=== PATIENT | male | born 1960 | race Caucasian/White ===

== ENCOUNTER 2022-09-04 08:25 | Emergency (ER) | payer BC, SELFPAY ==
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
[2022-09-04 08:34] VITALS: BP 143/67; PULSE 63; RESP 16; TEMP 35.6; O2SAT 99
--- NOTE | 2022-09-04 09:07 | ED.EYEPROB ---
HPI - Eye Problem General Chief complaint: Eye Problems Stated complaint: right eye redness Source: patient and family Mode of arrival: ambulatory Limitations: no limitations History of Present Illness HPI Narrative: 62-year-old male presents [facility] complains of right eye redness, purulent drainage and matting since yesterday. Patient denies injury to his eye. Patient does wear glasses. Patient denies cough, congestion, runny nose, nausea, vomiting or diarrhea. Patient reports that he has had bacterial pinkeye in the past. MD chief complaint: eye redness Onset (ago): day(s) (1) Location: right eye Mechanism: none Associated symptoms: none Treatments Prior to Arrival: none Related Data Home Medications Medication Instructions Recorded Confirmed atorvastatin 40 mg tablet 40 mg PO DAILY 09/04/22 09/04/22 metformin 500 mg tablet,extended 500 mg PO DAILY 09/04/22 09/04/22 release 24 hr metoprolol succinate 25 mg 12.5 mg PO DAILY 09/04/22 09/04/22 tablet,extended release 24 hr Allergies Allergy/AdvReac Type Severity Reaction Status Date / Time No Known Allergies Allergy Verified 09/04/22 08:49 Review of Systems Constitutional: Constitutional: Denies chills, Denies fatigue, Denies fever(s) and Denies weakness Eyes: Comments: Redness, drainage and matting to right eye ENT: Denies vertigo and Denies dizziness Cardiovascular: Cardiovascular: Denies chest pain and Denies rapid heart rate Respiratory: Respiratory: Denies cough, Denies dyspnea and Denies wheezing Gastrointestinal: Gastrointestinal: Denies diarrhea, Denies nausea and Denies vomiting Integumentary/Breasts: Skin/Breast: Denies rash PMFSH Comments At time of signature, I agree with nursing past medical, surgical, social and family history. There is no relevant family history pertinent to the presenting complaint. Exam Const: General: healthy appearing and no acute distress Nutritional Appearance: well nourished Orientation/consciousness: patient oriented x3 Limitations: no limitations HENMT: Head: normal to inspection Mouth: Yes Normal oral and palatal mucosa present, Yes lip normal and Yes moist mucous membranes Teeth and gingiva: dentition normal Throat: posterior oropharynx normal and uvula midline Eyes: Conjunctivae: conjunctival abnormality right conjunctival injection and discharge purulent Pupils: Equal, round and reactive pupils present EOM: EOMs intact bilaterally Direct Ophthalmoscopy: no photophobia Neck: Neck: normal visual inspection Resp: Effort & Inspection: normal respiratory effort Auscultation: clear to auscultation bilaterally Cardio: Rate: regular rate Rhythm: regular rhythm Heart sounds: no murmurs Skin: General skin exam: normal color Rashes: no rashes Wounds: no wounds Neuro: General: patient oriented x3 Speech: normal speech Gait exam (Neuro): Normal gait present Psych: Mental Status: mental status grossly normal Affect: normal affect Attitude: cooperative Course Course Level of Care: [facility] Visit Vital Signs Vital signs: Vital Signs Temperature 35.6 C L 09/04/22 08:34 Pulse Rate 63 09/04/22 08:34 Respiratory Rate 16 09/04/22 08:34 Blood Pressure 143/67 H 09/04/22 08:34 Pulse Oximetry 99 09/04/22 08:34 Oxygen Delivery Room Air 09/04/22 08:34 Temperature 35.6 C L 09/04/22 08:34 Pulse Rate 63 09/04/22 08:34 Respiratory Rate 16 09/04/22 08:34 Blood Pressure 143/67 H 09/04/22 08:34 Pulse Oximetry 99 09/04/22 08:34 Oxygen Delivery Room Air 09/04/22 08:34 MDM - Eye Problem MDM Narrative Medical decision making narrative: instructed patient to use eyedrops as prescribed. Instructed patient to follow-up with eye doctor in 48 hours if symptoms do not improve. Instructed patient to wash hands after touching the eye. Differential Diagnosis Differential diagnosis: Likely periorbital cellulitis and subconjunctival hemorrhage [place]
== END 2022-09-04 09:22 | disposition home or self-care (01) ==
PROVIDERS: Emergency Provider Nurse Practitioner Family; PCP Family Medicine
DX: H10.9 Unspecified conjunctivitis (principal); E78.00 Pure hypercholesterolemia, unspecified; I10 Essential (primary) hypertension; E11.9 Type 2 diabetes mellitus without complications; I25.10 Atherosclerotic heart disease of native coronary artery without angina pectoris; Z95.5 Presence of coronary angioplasty implant and graft
CPT/HCPCS: 99213; G0463